=== PATIENT | female | born 1965 | race Caucasian/White ===

== ENCOUNTER 2018-09-26 23:41 | Inpatient (IN) | payer MEDICAID ==
[~2018-09-26] VITALS: Ht 157.5 cm; Wt 99.8 kg
[2018-09-26 23:42] VITALS: BP 133/83
--- NOTE | 2018-09-26 23:55 | NUR ---
TO LOBBY A/W BED AMBULATORY
--- NOTE | 2018-09-27 00:06 | NUR ---
PT TAKEN TO BED 11
[2018-09-27] MEDS ORDERED: ASPIRIN 325 MG TAB PO ONE (00:10)
--- NOTE | 2018-09-27 00:10 | NUR ---
LAB AT BEDSIDE. LABS DRAWN.
--- NOTE | 2018-09-27 00:17 | NUR ---
XRAY AT BEDSIDE.
[2018-09-27 00:23] LABS: BASOPHILS % (AUTO) 0.4 % (0.0-2.0); EOSINOPHILS # (AUTO) 0.2 K/uL (0-0.4); EOSINOPHILS % (AUTO) 2.5 % (0.0-4.0); HEMATOCRIT 36.9 % (36-48); HEMOGLOBIN 12.2 g/dL (12.0-16.0); LYMPHOCYTES # (AUTO) 1.5 K/uL (2.5-16.5); LYMPHOCYTES % (AUTO) 19.6 % (20.5-51.1); MEAN CORPUSCULAR HEMOGLOBIN 28 pg (27-31); MEAN CORPUSCULAR HGB CONC 33 g/dL (33-37); MEAN CORPUSCULAR VOLUME 85.5 fL (80-94); MONOCYTES # (AUTO) 0.5 K/uL (0.8-1.0); MONOCYTES % (AUTO) 6.9 % (1.7-9.3); NEUTROPHILS # (AUTO) 5.5 K/uL (1.8-7.7); NEUTROPHILS % (AUTO) 70.6 % (42.2-75.2); PLATELET COUNT (AUTO) 311 K/uL (140-450); RED BLOOD CELL COUNT(AUTO) 4.32 MIL/uL (4.20-5.40); RED CELL DISTRIBUTION WIDTH 13.6 % (11.6-13.7); WHITE BLOOD COUNT (AUTO) 7.8 K/uL (4.8-10.8)
--- NOTE | 2018-09-27 00:25 | NUR ---
53 YO F BIB SELF AND DAUGHTER PRESENTS TO ED C/O / PRESSURE LIKE CHEST PAIN SINCE LAST NIGHT. PT DENIES RADIATING PAIN, DIZZINESS, LIGHT HEADEDNESS. SHE DOES ADMIT TO FEELING MILDLY SOB AND STATES SHE HAS NAUSEA THAT COMES AND GOES BUT NO VOMITING. DENIES NAUSEA AT THIS TIME. -- PT AWAKE, A/O X4, CALM, COOPERATIVE. ANSWERS QUESTIONS APPROPRIATELY. BEHAVIOR AGE APPROPRIATE. -- SKIN PINK, WARM, DRY. BREATHING EVEN, UNLABORED. NO DIAPHORESIS NOTED. CAP REFILL BRISK. NO EDEMA PRESENT. PMH-- ASTHMA RX-- ALBUTEROL INH NEEDED. HAS NOT FILLED RX IN SOME TIME.
[2018-09-27] MEDS ORDERED: KETOROLAC 30 MG/ML VIAL IVP ONE (00:30)
[2018-09-27 00:35] LABS: ANION GAP 12.5 (8-16); CARBON DIOXIDE 25.3 mmol/L (21-32); CREATININE 0.9 mg/dL (0.6-1.3); POTASSIUM 3.8 mmol/L (3.5-5.1)
[2018-09-27 00:41] LABS: ALBUMIN 3.2 g/dL (3.4-5.0); TOTAL BILIRUBIN 0.2 mg/dL (0.0-1.0)
[2018-09-27 00:49] LABS: CREATINE KINASE MB 0.8 ng/mL (0-3.6)
[2018-09-27] MEDS ORDERED: ALBUTEROL SULFATE/IPRATROPIU 3 ML SOL IH ONE (01:25)
--- NOTE | 2018-09-27 01:32 | NUR ---
RT at bedside for breathing treatment.
--- NOTE | 2018-09-27 01:32 | NUR ---
Respiratory Therapist at bedside for respiratory intervention.
[2018-09-27] MEDS ORDERED: MORPHINE SULFATE 2 MG/ML SYR IVP PRN (02:00)
[2018-09-27] MEDS ORDERED: LORazepam 2 MG/ML VIAL IM/IVP PRN (02:00)
[2018-09-27] MEDS ORDERED: DOCUSATE SODIUM 100 MG GELCAP PO PRN (02:00)
[2018-09-27] MEDS ORDERED: ALBUTEROL SULFATE/IPRATROPIU 3 ML SOL IH PRN (02:00)
[2018-09-27] MEDS ORDERED: methylPREDNISolone SS 125 MG in WATER STERILE 2 ML IV ONE (02:00)
[2018-09-27] MEDS ORDERED: ACETAMINOPHEN 325 MG TAB PO PRN (02:00)
[2018-09-27] MEDS ORDERED: ONDANSETRON 4 MG/2 ML VIAL IM/IVP PRN (02:00)
--- NOTE | 2018-09-27 02:00 | NUR ---
PT AWAKE, ALERT, CALM, STILL C/O 5/10 BACK/CHEST PAIN. VSS. BREATHING EVEN UNLABORED. SP02:92% PT PLACED ON 2 LPM FI02 VIA NC FOR COMFORT. SP02: 96%. WAITING FOR TELE BED.
[2018-09-27] MEDS ORDERED: NITROGLYCERIN 0.4 MG TAB SL PRN (02:15)
[2018-09-27 02:33] LABS: PROTHROMBIN TIME 9.3 secs (10.8-13.4)
[2018-09-27 02:44] LABS: MAGNESIUM 1.8 mg/dL (1.8-2.4); THYROID STIMULATING HORMONE < 0.01 uIU/mL (0.34-3.74)
--- NOTE | 2018-09-27 02:55 | NUR ---
Patient will be admitted to care of Dr. Bartlett. Admited to TELE. Will go to room 105B. Belongings list completed. Report to NILDA Warner.
--- NOTE | 2018-09-27 03:00 | NUR ---
RECEIVED FROM ER PER [place] BUT ABLE TO WALK WELL UN ASSISTED FROM DOOR OF ROOM TO BED B . AMBULATING WELL. ROM X 4. A/O X 4. PT. DX. OF CHEST PAIN AND ABNORMAL EKG. CARE PLANS FOR THE NIGHT DISCUSSED WITH THEM . ON 02 AT 2LPM/NC WITH 02 SAT OF 100 %. CALL LIGHT WITH IN REACH. ACCOMPANIED BY SPOUSE WHO SPEAKS ADEQUATE FAROESE. IVF SITE TO [id number] . OBESE FEMALE PT. SKIN INTACT. ORIENTED TO ROOM , CARE PLANS AND CALL LIGHT USE. ON CARDIAC TELEMETRY MONITORING. BILATERAL SEQUENTIALS APPLIED.
--- NOTE | 2018-09-27 03:10 | NUR ---
RESIDENT MD JOHNSON IN HERE TO TALK WITH PT.
[2018-09-27 03:30] VITALS: BP 109/49
[2018-09-27] MEDS: NACL 0.9% 1,000 ML IV SCH ×2 (04:40→20:12)
--- NOTE | 2018-09-27 05:00 | NUR ---
PT. SLEEPING. CALL LIGHT WITH IN REACH. IVF INFUSING WELL AT 60 ML/H. NO INFILTRATION NOTED. BILATERAL SEQUENTIALS IN PLACE.
--- NOTE | 2018-09-27 06:26 | NUR ---
ADMISSION INTERVIEW DONE WITH THE HELP OF [employer] # [id number] /LULU.
--- NOTE | 2018-09-27 07:23 | NUR ---
PRIMARY MD ROBERT IN HERE AND SEEN PT. NO COMPLAINTS DONE AT THIS TIME. ENDORSED TO THE NEXT RN FOR CONTINUITY OF CARE.
--- NOTE | 2018-09-27 07:30 | NUR ---
PATIENT WAS AWAKE, ALERT. RESPIRATION EVEN, UNLABOR ON ROOM AIR. SKIN DRY AND WARM. IV PATENT AND INTACT. DENIED PAIN, SOB AT THIS TIME. PLAN OF CARE WAS DISCUSSED WITH PATIENT. BED AT LOW POSITION, SIDE RAILS UP. CALL LIGHT WITHIN REACH
[2018-09-27] MEDS: ALBUTEROL SULFATE/IPRATROPIU 3 ML SOL IH SCH ×3 (07:58→19:19)
[2018-09-27 08:00] VITALS: BP 101/58
--- NOTE | 2018-09-27 08:09 | NUR ---
PATIENT HAS BEEN SCREENED AND CATEGORIZED HIGH NUTRITION RISK. PATIENT WILL BE SEEN WITHIN 1-2 DAYS OF ADMISSION. 09/27/18-09/28/[address]
[2018-09-27] MEDS: METOPROLOL 25 MG TAB PO SCH ×2 (08:38→20:12)
[2018-09-27] MEDS: ASPIRIN 81 MG TAB.CHEW PO SCH (08:39)
[2018-09-27] MEDS: ATORVASTATIN 20 MG TAB PO SCH (08:39)
[2018-09-27] MEDS ORDERED: LISINOPRIL 5 MG TAB PO SCH (09:00)
--- NOTE | 2018-09-27 10:17 | NUR ---
ENDORSEMENT GIVEN TO MARCO ANTONIO RN FOR CONTINUITY OF CARE. PATIENT IS STABLE AT THIS TIME
--- NOTE | 2018-09-27 10:40 | NUR ---
RECEIVED ENDORSEMENT FROM NILDA BERNARD ABOUT THE PT. PT IS AWAKE AND LYING ON THE BED WITH SIDE RAILS UP AND CALL LIGHT WITHIN REACH, HAS AN IV LINE ON THE LEFT AC G.18 WITH NS AT 60ML/HR INFUSING, INTACT, NO SIGN NO OF DISTRESS NOTED AND WILL MONITOR PT.
[2018-09-27 12:00] VITALS: BP 101/54
--- NOTE | 2018-09-27 12:30 | NUR ---
PT IS AWAKE AND VITAL SIGNS CHECKED AND BP IS 101/54, PULSE IS 75, TEMPERATURE IS 98.3, O2 SATURATION IS 95% ON 2L O2 NC, RESPIRATION IS 18/MIN, NO SIGN OF DISTRESS NOTED AND WILL MONITOR PT.
--- NOTE | 2018-09-27 14:40 | NUR ---
09/27/18 RD INITIAL ASSESSMENT COMPLETED PLEASE REFER TO NUTRITION ASSESSMENT UNDER CARE ACTIVITY FOR ESTIMATED NUTRITIONAL NEEDS. 1. CONTINUE CARDIAC DIET TOLERATED 2. PROVIDED PT WITH GENERAL HEALTHY EATING EDUCATION HANDOUT. 3. RD TO FOLLOW-UP 5-7 DAYS, LOW RISK [address], RD
--- NOTE | 2018-09-27 15:44 | NUR ---
PT VERBALIZED A PAIN RATE OF 6/10 ON THE CHEST AND PT ASKED FOR TYLENOL FOR PAIN, PT DOES NOT WANT NORCO BECAUSE SHE SAID THAT IT MAKES HER FEEL HYPERACTIVE. WILL MEDICATE PT.
--- NOTE | 2018-09-27 15:46 | NUR ---
PT IS AWAKE AND VITAL SIGNS TAKEN, BP IS 104/58, PULSE IS 97, O2 SATURATION IS 96%, TEMPERATURE IS 97.2, RESPIRATION IS 18/MIN, TYLENOL WAS GIVEN FOR PAIN AND PT TOLERATED IT. WILL RE-ASSESS AND MONITOR PT.
[2018-09-27 16:00] VITALS: BP 104/58
[2018-09-27 16:49] LABS: APPEARANCE,URINE CLEAR (CLEAR); BILIRUBIN,URINE NEGATIVE (NEGATIVE); BLOOD, URINE NEGATIVE (NEGATIVE); COLOR,URINE YELLOW (YELLOW); LEUKOCYTE ESTERASE ,URINE NEGATIVE (NEGATIVE); NITRITE, URINE NEGATIVE (NEGATIVE); UGLUCOSE NEGATIVE (NEGATIVE)
[2018-09-27 17:00] LABS: BARBITURATE, URINE NEG. ng/ml (NEG <=200); BENZODIAZEPINE, URINE NEG. ng/mL (NEG <=200); CANNABINOID, URINE NEG. ng/mL (NEG <=50); COCAINE, URINE NEG. ng/mL (NEG <=300); OPIATE, URINE NEG. ng/mL (NEG <=2000); PHENCYCLIDINE SCREEN,URINE NEG. ng/mL (NEG <=25)
--- NOTE | 2018-09-27 19:15 | NUR ---
ENDORSED PT TO SURVEY SUPERINTENDENT NURSE FOR CONTINUITY OF CARE.
--- NOTE | 2018-09-27 19:22 | NUR ---
RECEIVED FROM AM RN IN BED SITTING UP AWAKE AND ALERT. NO SOB. DENIES PAIN AT THIS TIME. CALL LIGHT WITH IN REACH AND CARE PLAN FOR THE NIGHT DISCUSSED WITH HER. ENCOURAGED TO USE CALL LIGHT IF WITH DOLOR OR NEEDS HELP. "SI" CARDIAC TELEMETRY MONITORING.
[2018-09-27 20:02] VITALS: BP 97/57
--- NOTE | 2018-09-27 20:30 | NUR ---
PT.S SPOUSE IN HERE AND NO COMPLAINTS DONE. CALL LIGHT WITH IN REACH.
--- NOTE | 2018-09-27 21:10 | NUR ---
RESIDENT MD MADE AWARE OF PT'S METOPROLOL P.O. NOT ADMINISTERED RT SBP LESS THAN 100. PT. ASYMPTOMATIC AND VERBALIZING WELL WITH ME AND SPOUSE. NO COMPLAINTS DONE.
--- NOTE | 2018-09-27 22:47 | NUR ---
SLEEPING AT THIS TIME.
[2018-09-27 23:55] VITALS: BP 108/66
--- NOTE | 2018-09-27 23:57 | NUR ---
PT. AWAKE AND VITAL SIGNS TAKEN. PT. ABLE TO VERBALIZE NEEDS WELL. PROVIDED WITH WARM BLANKET REQUESTED. NO PAIN COMPLAINTS DONE.
--- NOTE | 2018-09-28 02:10 | NUR ---
WOKE UP. ASSISTED TO RESTROOM TO URINATE. ABLE TO VERBALIZE NEEDS WELL. NO RESTLESSNESS. CALL LIGHT WITH IN REACH.
[2018-09-28 03:32] VITALS: BP 110/72
--- NOTE | 2018-09-28 04:55 | NUR ---
CHECKED ON PT. ASLEEP. NO RESTLESSNESS. NO WHEEZING NOTED.
[2018-09-28] MEDS: methylPREDNISolone SS 125 MG/2 ML VIAL IVP SCH ×3 (05:31→22:44)
[2018-09-28 05:49] LABS: ANION GAP 14.5 (8-16); CARBON DIOXIDE 22.8 mmol/L (21-32); CREATININE 0.9 mg/dL (0.6-1.3); POTASSIUM 4.3 mmol/L (3.5-5.1)
[2018-09-28 05:56] LABS: MAGNESIUM 1.9 mg/dL (1.8-2.4); PHOSPHORUS 4.4 mg/dL (2.5-4.9)
[2018-09-28 06:03] LABS: CHOL/HDL RATIO 2.8 (1-4.5)
[2018-09-28 06:36] LABS: BASOPHILS % (AUTO) 0.1 % (0.0-2.0); HEMOGLOBIN 11.8 g/dL (12.0-16.0); LYMPHOCYTES # (AUTO) 1.7 K/uL (2.5-16.5); LYMPHOCYTES % (AUTO) 12.4 % (20.5-51.1); MEAN CORPUSCULAR HEMOGLOBIN 28 pg (27-31); MEAN CORPUSCULAR HGB CONC 33 g/dL (33-37); MEAN CORPUSCULAR VOLUME 85.8 fL (80-94); MONOCYTES # (AUTO) 0.8 K/uL (0.8-1.0); MONOCYTES % (AUTO) 5.6 % (1.7-9.3); NEUTROPHILS % (AUTO) 81.9 % (42.2-75.2); PLATELET COUNT (AUTO) 300 K/uL (140-450); RED BLOOD CELL COUNT(AUTO) 4.19 MIL/uL (4.20-5.40); RED CELL DISTRIBUTION WIDTH 13.6 % (11.6-13.7); WHITE BLOOD COUNT (AUTO) 13.4 K/uL (4.8-10.8)
--- NOTE | 2018-09-28 06:42 | NUR ---
PT. SLEEPING. NO RESTLESSNESS. CALL LIGHT WITH IN REACH. SLEPT WELL THIS SHIFT. NO SOB OR PAIN COMPLAINTS THIS SHIFT.
--- NOTE | 2018-09-28 07:00 | NUR ---
RECEIVED BEDSIDE REPORT FROM NIGHT NURSE. PT RESTING IN BED WITH NO OBVIOUS SIGNS OF DISTRESS. PT BREATHING ON ROOM AIR SYMMETRICAL. LEFT FOREARM IV ON PT THAT IS ASYMPTOMATIC AND PATENT RUNNING 60ML/HR OF NORMAL SALINE. ALL SAFETY MEASURES IN PLACE WITH CALL LIGHT WITHIN REACH. PT AOX4.
[2018-09-28] MEDS: ALBUTEROL SULFATE/IPRATROPIU 3 ML SOL IH SCH ×3 (07:36→19:13)
[2018-09-28 08:00] VITALS: BP 118/69
[2018-09-28] MEDS: ASPIRIN 81 MG TAB.CHEW PO SCH (08:06)
[2018-09-28] MEDS: ATORVASTATIN 20 MG TAB PO SCH (08:06)
--- NOTE | 2018-09-28 08:08 | NUR ---
ADMINISTERED MEDICATION TO PT, REVIEWED INDICATION. PT HAS NO OBVIOUS SIGNS OF DISTRESS, STANDING AT BEDSIDE GAIT STEADY, NO COMPLAINTS OR REQUESTS.
--- NOTE | 2018-09-28 08:51 | NUR ---
WAS CONTACTED BY ROAD MAKER WHO INFORMED ME PT IS ASKING FOR TOAST AND OATMEAL. CONTACTED FNS AND INFORMED THEM OF THIS AT THIS TIME.
--- NOTE | 2018-09-28 09:45 | NUR ---
BROUGHT PATIENT TOAST AND OATMEAL PER HER REQUEST. NO OTHER REQUESTS AT THIS TIME.
--- NOTE | 2018-09-28 10:30 | NUR ---
PROCUREMENT AGENT INFORMED ME PATIENT IS REQUESTING A SHOWER. INFORMED HER OF TELE UNIT OBSERVATION AND INABILITY TO GET IT WET. PROCUREMENT AGENT STATES SHE WILL TALK TO PATIENT AND THAT PATIENT IS AGREEABLE IF SHE CAN NOT.
[2018-09-28 12:00] VITALS: BP 142/79
--- NOTE | 2018-09-28 12:40 | NUR ---
ADMINISTERED MEDICATION, DR JACOB AT BEDSIDE DISCUSSING PLAN WITH PATIENT FOR DISCHARGE TOMORROW.
[2018-09-28] MEDS: NACL 0.9% 1,000 ML IV SCH ×2 (12:42→15:44)
--- NOTE | 2018-09-28 13:10 | NUR ---
REMOVED TELE MONITOR FROM PT DUE TO TRANSFER TO MED SURG. PT HAS NO REQUESTS NO DISTRESS.
--- NOTE | 2018-09-28 14:07 | NUR ---
PT SLEEPING IN BED, BREATHING UNLABORED AND SYMMETRICAL.
--- NOTE | 2018-09-28 15:44 | NUR ---
STARTED NEW BAG OF NS. PATIENT HAS NO REQUESTS BESIDE ASKING ABOUT BREATHING TREATMENTS. CALLED RT AND INFORMED HER OF THIS. PT BREATHING UNLABORED WITH NO SIGNS OF DISTRESS AT THIS TIME.
[2018-09-28 16:00] VITALS: BP 126/60
[2018-09-28] MEDS: HYDROcodone/APAP 5/325 MG 1 TAB TAB PO PRN ×2 (17:32→17:45)
--- NOTE | 2018-09-28 17:48 | NUR ---
ADMINISTERED PRN NORCO PER PATIENT REQUEST FOR PAIN, PT HAS NO OTHER REQUESTS AT THIS TIME. NO OBVIOUS SIGNS OF DISTRESS BREATHING UNLABORED AND SYMMETRICAL.
--- NOTE | 2018-09-28 18:34 | NUR ---
PT SITTING ON EDGE OF BED WITH MALE VISITOR AT BEDSIDE NO SIGNS OF DISTRESS BREATHING UNLABORED. PATIENT DENIES ANY PAIN AT THIS TIME OR REQUESTS.
--- NOTE | 2018-09-28 19:17 | NUR ---
RECIEVED PT. AWAKE ON BED ,AAOX4 ,NID ,AMBULATORY, V/S WNL, IV SITE INTACT AND PATENT, PLAN OF CARE DISCUSSED AND VERBALIZE UNDERSTANDING, RELATIVE ON BEDSIDE, BED IN LOW POSITION , SIDERAILS UP X2 ,CALL LIGHT WITHIN REACH, WILL CONTINUE TO MONITOR.
--- NOTE | 2018-09-28 19:17 | NUR ---
GAVE BEDSIDE REPORT TO NIGHT NURSE, PT IN STABLE CONDITION.
[2018-09-28 20:00] VITALS: BP 125/70
--- NOTE | 2018-09-28 20:00 | NUR ---
IVF INFUSING WELL , WENT TO BATH ROOM ,VOIDED FREELY , CALL LIGHT WITHIN REACH ,WILL CONTINUE TO MONITOR
--- NOTE | 2018-09-28 22:00 | NUR ---
MADE ROUNDS PT. SLEEPING
[2018-09-29] VITALS: BP 136/82
--- NOTE | 2018-09-29 | NUR ---
MADE ROUNDS , V/S WNL, NID , IVF INFUSING WELL , NO FURTHER COMPLAIN MADE AT THIS TIME.,CALL LIGHT WITHIN REACH
--- NOTE | 2018-09-29 02:00 | NUR ---
MADE ROUNDS , PT VOIDED FREELY, NO FURTHER COMPLAIN MADE AT THIS TIME.
--- NOTE | 2018-09-29 04:00 | NUR ---
MADE ROUNDS V/S WNL ,NID , IV SITE INTACT AND PATENT , NO FURTHER COMPLAIN MADE AT THIS TIME. CALL LIGHT WITHIN REACH
[2018-09-29 04:32] VITALS: BP 137/80
[2018-09-29] MEDS ORDERED: methylPREDNISolone SS 40 MG/ML VIAL IVP SCH (05:00)
--- NOTE | 2018-09-29 06:00 | NUR ---
MADE ROUNDS PT. SLEEPING ,CALL LIGHT WITHIN REACH.
[2018-09-29 06:58] LABS: HEMATOCRIT 35.9 % (36-48); HEMOGLOBIN 11.8 g/dL (12.0-16.0); LYMPHOCYTES # (AUTO) 0.8 K/uL (2.5-16.5); MEAN CORPUSCULAR HEMOGLOBIN 28 pg (27-31); MEAN CORPUSCULAR HGB CONC 33 g/dL (33-37); MONOCYTES # (AUTO) 0.3 K/uL (0.8-1.0); NEUTROPHILS # (AUTO) 11.9 K/uL (1.8-7.7); PLATELET COUNT (AUTO) 305 K/uL (140-450); RED BLOOD CELL COUNT(AUTO) 4.22 MIL/uL (4.20-5.40)
[2018-09-29] MEDS: ALBUTEROL SULFATE/IPRATROPIU 3 ML SOL IH SCH (07:04)
[2018-09-29 07:08] LABS: ANION GAP 14.6 (8-16); CARBON DIOXIDE 24.8 mmol/L (21-32); CREATININE 0.8 mg/dL (0.6-1.3); POTASSIUM 4.4 mmol/L (3.5-5.1)
--- NOTE | 2018-09-29 07:13 | NUR ---
ENDORSED TO AM SHIFT FOR CONTINUITY OF CARE. CALL LIGHT WITHIN REACH.
--- NOTE | 2018-09-29 07:15 | NUR ---
RECEIVED BEDSIDE REPORT FROM BIOMECHANICAL ENGINEER RN FOR CONTINUITY OF CARE. PT IN STABLE CONDITION. DENIES PAIN AND DISCOMFORT. NO S/S DISTRESS. RESPIRATIONS EVEN AND UNLABORED. HEART RHYTHM REGULAR. ACTIVE BS IN ALL QUADRANTS. ABDOMEN SOFT AND NON-DISTENDED. SKIN INTACT. PT IS AMBULATORY WITHOUT ASSIST. IV SITE PATENT AND ASYMPTOMATIC, INFUSING IVF PER MD ORDERS. ALL SAFETY PRECAUTIONS IN PLACE, WILL CONTINUE TO MONITOR. Addendum: 09/29/18 at 1141 by Nallely Whelan Meng RN DENIES CP, SOB
[2018-09-29 07:18] LABS: MAGNESIUM 1.8 mg/dL (1.8-2.4); PHOSPHORUS 4.2 mg/dL (2.5-4.9)
[2018-09-29 08:00] VITALS: BP 140/77
[2018-09-29] MEDS: NACL 0.9% 1,000 ML IV SCH (08:43)
--- NOTE | 2018-09-29 08:45 | NUR ---
PT SLEEPING IN BED, NO S/S OF DISTRESS. ALL SAFETY PRECAUTIONS IN PLACE, WILL CONTINUE TO MONITOR.
[2018-09-29] MEDS ORDERED: ALBU-118 IH (08:57)
[2018-09-29] MEDS ORDERED: METH4TAB3 PO (08:58)
--- NOTE | 2018-09-29 11:00 | NUR ---
DISCHARGE PAPERWORK, INCLUDING INSTRUCTIONS TO F/U WITH PCP WITHIN 3-5 DAYS, GIVEN TO PATIENT. US THYROID REPORT GIVEN TO PATIENT. INFORMED PT TO F/U WITH PCP ON BEST PLAN OF ACTION RE: THYROID NODULE AND ABN THYROID LABS. NEW PRESCRIPTION/MEDICATION TEACHING AND MEDICATION RECONCILIATION TEACHING GIVEN TO PATIENT WITH USE OF CHOCOLATE PRODUCTION MACHINE OPERATOR #[id number]. PT VERBALIZED COMPLETE UNDERSTANDING. IV SITE REMOVED WITH MINIMAL BLOOD LOSS AND LUMEN COMPLETELY INTACT. ID BANDS REMOVED. ALL PERSONAL BELONGINGS ARE WITH PATIENT. PATIENT DOES NOT KNOW WHEN LAST RECEIVED PNEUMOVAX. PT WANTS TO F/U WITH HER PCP.
[2018-09-30] MEDS ORDERED: methylPREDNISolone SS 40 MG/ML VIAL IVP SCH (09:00)
== END 2018-09-29 11:00 | disposition home or self-care (01) | DRG 141 ==
LOC: MED 23:41 → MTU 09-27 02:05
PROVIDERS: ADMIT General Practice; ATTEND General Practice
DX: J45.901 Unspecified asthma with (acute) exacerbation (principal); I50.43 Acute on chronic combined systolic (congestive) and diastolic (congestive) heart failure; E44.1 Mild protein-calorie malnutrition; Z68.41 Body mass index [BMI] 40.0-44.9, adult; D72.829 Elevated white blood cell count, unspecified; J45.909 Unspecified asthma, uncomplicated; F32.9 Major depressive disorder, single episode, unspecified; E66.9 Obesity, unspecified; T38.0X5A Adverse effect of glucocorticoids and synthetic analogues, initial encounter; R73.03 Prediabetes; E05.10 Thyrotoxicosis with toxic single thyroid nodule without thyrotoxic crisis or storm; Z90.49 Acquired absence of other specified parts of digestive tract; Z88.2 Allergy status to sulfonamides; Z83.3 Family history of diabetes mellitus; Z71.3 Dietary counseling and surveillance; Y92.89 Other specified places as the place of occurrence of the external cause
CPT/HCPCS: 36415; 71045; 76536; 80048; 80053; 80305; 81003; 82550; 82553; 83036; 83690; 83735; 83880; 84100; 84439; 84443; 84484; 85025; 85610; 85730; 87081; 93005; 94640; 96374; 96375; 99285; J1885; J2920; J2930; J7030; J7620; Q0092